=== PATIENT | male | born 1985 ===

== ENCOUNTER 2020-12-18 23:40 | Emergency (ER) | payer OTHER ==
[~2020-12-18] VITALS: Ht 182.9 cm; Wt 90.7 kg
[2020-12-19] MEDS ORDERED: ZITHROMAX500 MG PO (04:17)
[2020-12-19] MEDS ORDERED: ZYNCOF 20-400120 ML PO (04:17)
== END 2020-12-19 04:35 ==
LOC: ER 23:40
DX: R05 Cough (principal); B96.0 Mycoplasma pneumoniae [M. pneumoniae] as the cause of diseases classified elsewhere; Z20.822 Contact with and (suspected) exposure to COVID-19